=== PATIENT | female | born 1985 | race Asian ===

== ENCOUNTER 2020-09-12 06:47 | Day surgery (SDC) | payer OTHER, SELFPAY ==
[~2020-09-12] VITALS: Ht 165.1 cm; Wt 83.9 kg
[2020-09-12] MEDS ORDERED: fentaNYL citrate 0.05 MG/ML VIAL ONE (08:53)
[2020-09-12] MEDS ORDERED: diphenhydrAMINE 50 MG/ML VIAL ONE (08:53)
[2020-09-12] MEDS ORDERED: MIDAZOLAM 5 MG/5 ML VIAL ONE (08:54)
[2020-09-12] MEDS ORDERED: LIDOCAINE 2% 100 MG/5 ML UJET TP ONE ×2 (08:54→13:20)
[2020-09-12] MEDS ORDERED: MIDAZOLAM 2 MG/2 ML VIAL IVP ONE (13:20)
[2020-09-12] MEDS ORDERED: fentaNYL citrate 0.05 MG/ML VIAL IVP ONE (13:20)
== END 2020-09-12 09:56 | disposition home or self-care (01) ==
LOC: MMU 06:47 → MDS 06:47
PROVIDERS: ATTEND Internal Medicine Gastroenterology
DX: K62.5 Hemorrhage of anus and rectum (principal); K52.9 Noninfective gastroenteritis and colitis, unspecified; Z20.822 Contact with and (suspected) exposure to COVID-19; Z79.899 Other long term (current) drug therapy
CPT/HCPCS: 45380; 81025; 88305; J2250; J3010; U0003; J1200